=== PATIENT | female | born 1975 ===

== ENCOUNTER 2017-01-23 17:31 | Emergency (ER) | payer BC, OTHER ==
[2017-01-23 17:46] VITALS: RESP 18; TEMP 99.2; BMI 25.7
[2017-01-23] MEDS ORDERED: Sodium Chloride 0.9% 1,000 ML IV STA (17:59)
--- NOTE | 2017-01-23 18:05 | ED PDOC ---
Arrival/HPI - General Chief Complaint: Female Genitourinary Time Seen by Provider: 01/23/17 17:45 Historian: Patient - History of Present Illness Narrative History of Present Illness (Text): 01/23/17 18:02 41yo female with PMHx of hypothyroid who present with complaint of vaginal bleeding since yesterday. she notes that she has been having symptoms associated with . States she took home test and it was Positive. Started having very small vaginal bleeding since yesterday. Also reports pelvic pain. States she spoke with her OB and was referred to the ED. She have not seen her OB yet. +Nausea. Denies vomiting, fever, chills, chest pain, urinary symptoms, any other complaint. Past Medical History - Provider Review Nursing Documentation Reviewed: Yes - Cardiac Hx Cardiac Disorders: No - Pulmonary Hx Respiratory Disorders: No - Neurological Hx Neurological Disorder: No - HEENT Hx HEENT Disorder: No - Renal Hx Renal Disorder: No - Endocrine/Metabolic Hx Hypothyroidism: Yes - Hematological/Oncological Hx Blood Disorders: No - Integumentary Hx Dermatological Disorder: No - Musculoskeletal/Rheumatological Hx Musculoskeletal Disorders: No - Gastrointestinal Hx Gastrointestinal Disorders: No - Genitourinary/Gynecological Hx Genitourinary Disorders: No - Psychiatric Hx Psychophysiologic Disorder: No Hx Substance Use: No - Surgical History Hx Gastric Bypass Surgery: Yes Other/Comment: breast implants - Anesthesia Hx Anesthesia: Yes Family/Social History - Physician Review Nursing Documentation Reviewed: Yes Family/Social History: Unknown Family HX Smoking Status: Never Smoked Hx Alcohol Use: Yes Hx Substance Use: No Allergies/Home Meds Allergies/Adverse Reactions: Allergies shellfish derived Allergy (Verified 01/23/17 17:46) RASH Home Medications: Home Meds Medication Instructions Recorded Confirmed Levothyroxine [Levoxyl] 0.025 mg PO DAILY 01/23/17 01/23/17 Review of Systems - Physician Review All systems were reviewed & negative as marked: Yes - Review of Systems Constitutional: Normal Eyes: Normal ENT: Normal Respiratory: Normal Cardiovascular: Normal Gastrointestinal: Abdominal Pain, Nausea. absent: Constipation, Diarrhea, Vomiting, Hematemesis Genitourinary Female: Vaginal Bleeding Musculoskeletal: Normal Skin: Normal Neurological: Normal Endocrine: Normal Hemo/Lymphatic: Normal Psychiatric: Normal Physical Exam Vital Signs Reviewed: Yes Vital Signs Temp Pulse Resp BP Pulse Ox 01/23/17 20:29 18 99 01/23/17 19:32 86 18 115/75 98 01/23/17 17:47 99.2 F 91 H 18 118/80 98 01/23/17 17:45 99.2 F 91 H 18 118/80 98 Temperature: Afebrile Blood Pressure: Normal Pulse: Regular Respiratory Rate: Normal Appearance: Positive for: Well-Appearing, Non-Toxic, Comfortable Pain Distress: None Mental Status: Positive for: Alert and Oriented X 3 - Systems Exam Head: Present: Atraumatic, Normocephalic Pupils: Present: PERRL Extroacular Muscles: Present: EOMI Conjunctiva: Present: Normal Mouth: Present: Moist Mucous Membranes Neck: Present: Normal Range of Motion Respiratory/Chest: Present: Clear to Auscultation, Good Air Exchange. No: Respiratory Distress, Accessory Muscle Use Cardiovascular: Present: Regular Rate and Rhythm, Normal S1, S2. No: Murmurs Abdomen: Present: Normal Bowel Sounds. No: Tenderness, Distention, Peritoneal Signs, Rebound, Guarding, McBurney's Point Tender, Rovsing's Sign Present Genitourinary/Pelvic Exam: Present: Vaginal Bleeding (Scanty blood pool in vault ), Cervical os Closed Back: Present: Normal Inspection Upper Extremity: Present: Normal Inspection. No: Cyanosis, Edema Lower Extremity: Present: Normal Inspection. No: Edema Neurological: Present: GCS=15, CN II-XII Intact, Speech Normal Skin: Present: Warm, Dry, Normal Color. No: Rashes Psychiatric: Present: Alert, Oriented x 3, Normal Insight, Normal Concentration Medical Decision Making ED Course and Treatment: 01/23/17 20:20 IMPRESSION: Small, round, cystic area seen within the endometrium, which could represent an early (5 week, 1 day) intrauterine gestational sac, but there is no pole or yolk sac identified. Note that an ectopic gestation is not entirely excluded in this patient. Recommend correlation with quantitative beta HCG levels, and close clinical followup, including serial beta-hCG levels. 2 large uterine fibroids, both measuring approximately 8 cm maximally. Transvaginal portion of the exam was limited, as discussed. See above for remaining findings. 01/23/17 20:36 PT in ED for stated history[place] [address].00 [place] result was DW the pt. PT was strongly advised to f/u with her OB or to return to ED for a repeat beta quant within a week. - Lab Interpretations Lab Results: 01/23/17 18:15 01/23/17 18:15 Lab Results 01/23/17 18:15: Blood Type O NEGATIVE, Antibody Screen Negative, BBK History Checked No verified bt 01/23/17 18:15: Beta HCG, Quant [id number] H 01/23/17 18:15: Sodium 141, Potassium 4.0, Chloride 106, Carbon Dioxide 27, Anion Gap 12, BUN 14, Creatinine 0.6 L, Est GFR ( Amer) > 60, Est GFR ( Non-Af Amer) > 60, Random Glucose 101, Calcium 9.1, Total Bilirubin 0.3, AST 36 , ALT 37, Alkaline Phosphatase 48, Total Protein 7.2, Albumin 4.4, Globulin 2.8 , Albumin/Globulin Ratio 1.6 01/23/17 18:15: PT 11.2, INR 1.03, APTT 37.8 H 01/23/17 18:15: WBC 7.0, RBC 3.95, Hgb 12.0, Hct 34.8 L, MCV 88.1, MCH 30.4, MCHC 34.5, RDW 13.3, Plt Count 297, MPV 10.3, Gran % 61.3, Lymph % (Auto) 28.6, Schley % (Auto) 6.1 H, Eos % (Auto) 3.7, Baso % (Auto) 0.3, Gran # 4.32, Lymph # 2.0, Schley # 0.4, Eos # 0.3, Baso # 0.02 01/23/17 17:56: Urine Color Yellow, Urine Appearance Clear, Urine pH 6.0, Ur Specific [place] 1.015, Urine Protein Negative, Urine Glucose (UA) Negative, Urine Ketones Negative, Urine Blood Moderate H, Urine Nitrate Negative, Urine Bilirubin Negative, Urine Urobilinogen 0.2, Ur Leukocyte Esterase Small H, Urine RBC 15 - 20, Urine WBC 5 - 10, Ur Epithelial Cells 6 - 8, Amorphous Sediment Few, Urine Bacteria Many, Urine Other Uyeast, Urine HCG, Qual Positive - RAD Interpretation Radiology Orders: 01/23/17 17:57 OB TRANSVAGINAL [US] Stat - Medication Orders Current Medication Orders: Discontinued Medications Sodium Chloride (Sodium Chloride 0.9%) 1,000 mls @ 999 mls/hr IV .Q1H1M STA Stop: 01/23/17 18:59 Last Admin: 01/23/17 18:33 Dose: 999 mls/hr eMAR Start Stop Document 01/23/17 18:33 [email or web address] (Rec: 01/23/17 18:33 [email or web address] [id number]) Intravenous Solution Start Date 01/23/17 Start Time 18:33 End Date 01/23/17 Disposition/Present on Arrival - Present on Arrival Any Indicators Present on Arrival: No History of DVT/PE: No History of Uncontrolled Diabetes: No Urinary Catheter: No History of Decub. Ulcer: No History Surgical Site Infection Following: None - Disposition Have Diagnosis and Disposition been Completed?: Yes Diagnosis: Abdominal pain, Threatened Disposition: HOME/ ROUTINE Disposition Time: 20:25 Patient Plan: Discharge Condition: STABLE Discharge Instructions (ExitCare): Threatened Miscarriage (ED) Additional Instructions: Follow up with your OB Return to ED for any new or worsening symptoms Referrals: Spike Montoya MD [Primary Care Provider] - Follow up with primary Corie Upton MD [Staff Provider] - Follow up with primary Forms: [employer] (Tongan)
[2017-01-23 18:37] LABS: BASO # 0.02 K/mm3 (0.0-2.0); BASO % 0.3 % (0.0-3.0); EOS # 0.3 (0.0-0.7); EOS % 3.7 % (1.5-5.0); GRAN # 4.32 (1.4-6.5); GRAN % 61.3 % (50.0-68.0); HEMATOCRIT 34.8 % (36.0-48.0); LYMPH % 28.6 % (22.0-35.0); MEAN CELL VOLUME 88.1 fl (80.0-105.0); MEAN CORPUSCULAR HEMOGLOBIN 30.4 pg (25.0-35.0); MEAN CORPUSCULAR HGB CONC 34.5 g/dl (31.0-37.0); MEAN PLATELET VOLUME 10.3 fl (7.0-11.0); MONO # 0.4 (0.1-0.6); MONO % 6.1 % (1.0-6.0); RED CELL DISTRIBUTION WIDTH 13.3 % (11.5-14.5)
[2017-01-23 18:46] LABS: INR 1.03 (0.93-1.08); PARTIAL THROMBOPLASTIN TIME 37.8 Seconds (25.1-36.5)
[2017-01-23 18:48] LABS: ALB/GLOB RATIO 1.6 (1.1-1.8); ALKALINE PHOSPHATASE 48 U/L (38-126); ALT/SGPT 37 U/L (7-56); AST/SGOT 36 U/L (14-36); BILIRUBIN,TOTAL 0.3 mg/dL (0.2-1.3); BLOOD UREA NITROGEN 14 mg/dL (7-21); CALCIUM 9.1 mg/dL (8.4-10.5); CARBON DIOXIDE 27 mmol/L (21-33); CHLORIDE 106 mmol/L (98-107); GFR AFRICAN-AMERICAN > 60; GLUCOSE,RANDOM 101 mg/dL (70-110); SODIUM 141 mmol/L (132-148); TOTAL PROTEIN 7.2 g/dL (5.8-8.3)
[2017-01-23 19:06] LABS: URINE BILIRUBIN NEGATIVE (NEGATIVE); URINE BLOOD MODERATE (NEGATIVE); URINE GLUCOSE (UA) NEGATIVE (NEGATIVE); URINE KETONE NEGATIVE (NEGATIVE); URINE LEUKOCYTE ESTERASE SMALL Leu/uL (NEGATIVE); URINE PROTEIN NEGATIVE mg/dL (<30 mg/dL); URINE UROBILINOGEN 0.2 E.U./dL (<1 E.U./dL)
[2017-01-23 19:15] LABS: URINE APPEARANCE CLEAR (CLEAR); URINE COLOR YELLOW (YELLOW)
[2017-01-23 19:19] LABS: URINE AMORPHOUS SEDIMENT FEW; URINE BACTERIA MANY (NEG); URINE RBC 15 - 20 /hpf (0-2)
--- NOTE | 2017-01-23 19:59 | US ---
EXAM: US Pelvis Complete, Transabdominal US Pelvis, Transvaginal EXAM DATE/TIME: 01/23/2017 5:57 PM CLINICAL HISTORY: 41 years old, female; Pain; complicated by abdominal or pelvic pain; Left lower quadrant; First trimester; Gestational age or lmp: 12/18/2016; ; Additional info: /bleeding TECHNIQUE: Real-time transabdominal and transvaginal pelvic ultrasound (complete) with image documentation. Transvaginal imaging was used for better evaluation of the endometrium and adnexa. COMPARISON: No relevant prior studies available. FINDINGS: Limitations: Transvaginal portion of the exam is limited because of shadowing from large uterine fibroids. Uterus: Abnormally enlarged, measuring 17.4 x 11.9 x 6.3 cm. 2 large uterine fibroids are visualized: (1) an 8 x 7.4 x 7.6 cm left sided fibroid, which is likely intramural in location, and is exophytic, and (2) an 8 x 7 x 6.7 cm right sided fibroid, which is likely intramural in location, and is exophytic. Cervix measures 3.8 cm in length transvaginally, within normal limits. Gestation: Small, round cystic area seen within the endometrium, measuring 12.8 x 7.2 x 11.9 mm transabdominally, seen only on the transabdominal scan. This most likely represents an early intrauterine gestational sac. However, there is no internal pole or yolk sac identified. If this is a gestational sac, it would correspond to an estimated gestational age of 5 weeks, 1 day, based on a mean gestational sac diameter of 10.6 mm. Right ovary: Seen only transabdominally. Contains a tiny 7 mm cystic lesion, most likely a dominant follicle or corpus luteal cyst. Otherwise within normal limits in appearance. Measures 2.9 x 2.4 x 2.1 cm. Flow seen in the right ovary on color and Doppler imaging, with no evidence of torsion. Left ovary: Seen only transabdominally, where it appears grossly normal. Flow seen in the left ovary on color and Doppler imaging, with no evidence of torsion. Free fluid in the cul-de-sac: None seen. IMPRESSION: Small, round, cystic area seen within the endometrium, which could represent an early (5 week, 1 day) intrauterine gestational sac, but there is no pole or yolk sac identified. Note that an ectopic gestation is not entirely excluded in this patient. Recommend correlation with quantitative beta HCG levels, and close clinical followup, including serial beta-hCG levels. 2 large uterine fibroids, both measuring approximately 8 cm maximally. Transvaginal portion of the exam was limited, as discussed. See above for remaining findings.
[2017-01-23 20:25] VITALS: BP 115/75; PULSE 86
[2017-01-23 20:30] VITALS: O2SAT 99
== END 2017-01-23 20:30 | disposition home or self-care (01) ==
LOC: ED 17:31
DX: O20.0 Threatened abortion (principal); R10.9 Unspecified abdominal pain; D25.9 Leiomyoma of uterus, unspecified; E03.9 Hypothyroidism, unspecified; Z98.84 Bariatric surgery status
CPT/HCPCS: 76817; 80053; 81001; 84702; 84703; 85025; 85610; 85730; 86850; 86900; 87086; 99283; J7040